=== PATIENT | female | born 1965 | race African-American/Black ===

== ENCOUNTER 2021-05-02 22:53 | Emergency (ER) | payer SELFPAY ==
[~2021-05-02] VITALS: Ht 165.1 cm; Wt 52.2 kg
[2021-05-02 23:04] VITALS: BP 140/97
--- NOTE | 2021-05-02 23:37 | NUR ---
PAN DEVULCANIZER AT PT'S BEDSIDE
--- NOTE | 2021-05-03 01:17 | NUR ---
Patient eloped from facility. ER MD notified.
== END 2021-05-03 01:18 | disposition home or self-care (01) ==
LOC: ER 22:56
DX: M25.512 Pain in left shoulder (principal); R07.81 Pleurodynia; Z60.2 Problems related to living alone; W05.1XXA Fall from non-moving nonmotorized scooter, initial encounter; Y93.55 Activity, bike riding; Y92.512 Supermarket, store or market as the place of occurrence of the external cause; Y99.8 Other external cause status
CPT/HCPCS: 71100-TC; 73030-TC

== ENCOUNTER 2021-08-14 15:12 | Emergency (ER) | payer MEDICARE, OTHER ==
[~2021-08-14] VITALS: Ht 165.1 cm; Wt 57.6 kg
--- NOTE | 2021-08-14 15:15 | NUR ---
BIB88 HOME AFTER DAUGHTER CALLED C/O FEELING SICK. PER EMS VOMITED X 1 YESTERDAY. PT STATED THAT SHE HAS BACK PAIN SINCE AN ACCIDENT SHE HAS PRIOR TO . PT ATTACHED TO MONITOR. DR SULLIVAN AT BEDSIDE
--- NOTE | 2021-08-14 15:26 | NUR ---
IV ETSBALISHED R FOREARM 20G. LABS DRAWN AND COLLECTED. CONVERTED TO SALINE LOCK.
[2021-08-14] MEDS ORDERED: ONDANSETRON HCL/PF 4 MG/2 ML VIAL IVP ONE (15:30)
[2021-08-14] MEDS ORDERED: IV NS 0.9% 1,000 ML BAG IV ONE (15:30)
--- NOTE | 2021-08-14 15:33 | NUR ---
PT TAKEN TO CT VIA YUE
[2021-08-14] MEDS ORDERED: ONDANSETRON HCL/PF 4 MG/2 ML VIAL ONE (15:42)
--- NOTE | 2021-08-14 15:51 | NUR ---
BUTT SAWYER AT BEDSIDE
[2021-08-14 16:04] LABS: BASOPHILS # (AUTO) 0.1 K/uL (0.0-0.2); BASOPHILS % (AUTO) 0.9 % (0.0-2.0); EOSINOPHILS % (AUTO) 1.3 % (0.0-6.0); HEMATOCRIT 37 % (33-45); HEMOGLOBIN 12.1 g/dL (11.5-14.8); LYMPHOCYTES # (AUTO) 1.8 K/uL (0.8-4.8); LYMPHOCYTES % (AUTO) 23.8 % (20.0-44.0); MEAN CORPUSCULAR HGB CONC 33 g/dl (31.0-36.0); MEAN CORPUSCULAR VOLUME 86 fL (82-100); MONOCYTES # (AUTO) 0.5 K/uL (0.1-1.30); MONOCYTES % (AUTO) 6.6 % (2.0-12.0); NEUTROPHILS % (AUTO) 67.4 % (43.0-81.0); PLATELET COUNT (AUTO) 397 K/uL (150-450); WHITE BLOOD COUNT (AUTO) 7.4 K/uL (4.3-11.0)
--- NOTE | 2021-08-14 16:06 | NUR ---
URINE SAMPLE COLLECTED VIA STRAIGHT CATHETER. SENT SAMPLE TO LAB
[2021-08-14 16:16] LABS: SERUM AMMONIA 26 umol/L (11-32)
[2021-08-14 16:42] LABS: BILIRUBIN,URINE SMALL (NEGATIVE); COLOR,URINE YELLOW (YELLOW); LEUKOCYTE ESTERASE ,URINE TRACE (NEGATIVE); NITRITE, URINE POSITIVE (NEGATIVE); PROTEIN,URINE 30 mg/dl (NEGATIVE); UGLUCOSE NEGATIVE (NEGATIVE)
[2021-08-14 16:42] LABS: THYROID STIMULATING HORMONE 0.554 uIU/mL (0.358-3.74)
[2021-08-14 16:56] LABS: ACETAMINOPHEN 0 ug/ml (10-30); ALANINE AMINOTRANSFERASE 21 U/L (12-78); ALBUMIN 3.9 g/dL (3.4-5.0); ALCOHOL, BLOOD < 3 mg/dL (0-0); ALKALINE PHOSPHATASE 87 U/L (46-116); ASPARTATE AMINOTRANSFERASE 18 U/L (15-37); BILIRUBIN,DIRECT 0.1 mg/dL (0.0-0.2); BILIRUBIN,TOTAL 0.5 mg/dL (0.2-1.0); CALCIUM, SERUM 8.8 mg/dL (8.5-10.1); CARBON DIOXIDE 28 mmol/L (21-32); CHLORIDE 99 mmol/L (98-107); CREATININE 0.9 mg/dL (0.6-1.3); GLUCOSE 114 mg/dL (74-106); POTASSIUM 4.1 mmol/L (3.5-5.1); SODIUM SERUM 134 mmol/L (136-145); TOTAL PROTEIN, SERUM 8.1 g/dL (6.4-8.2); UREA NITROGEN, BLOOD 12 mg/dL (7-18)
[2021-08-14] MEDS ORDERED: ONDA4TAB11 PO (17:10)
[2021-08-14] MEDS ORDERED: NITR100C6 PO (17:10)
[2021-08-14 17:20] LABS: BACTERIA,URINE 4+ /HPF (None Seen); RBC,URINE 0-2 /HPF (0-2); SQUAMOUS EPITHELIAL CELL,UR 0-2 /HPF (None Seen)
--- NOTE | 2021-08-14 17:30 | NUR ---
SPOKE TO BEVERLEY (DAUGHTER) [phone]. 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 WILL CALL COUSIN AND WILL CALL US BACK.
--- NOTE | 2021-08-14 17:52 | NUR ---
[employer] [facility] AND SET UP S TRANSPORT HOME ETA 1899
--- NOTE | 2021-08-14 18:06 | NUR ---
DAUGHTER MADE AWARE THAT PATIENT WILL BE PICKED UP AND TRANSPORTED TO HER HOUSE BY BLS
--- NOTE | 2021-08-14 19:06 | NUR ---
PATIENT PICKED UP BY [facility] [id number] IN STABLE CONDITION. PATIENT WILL BE BROUGHT TO HER HOUSE IN [place].
[2021-08-14 19:08] VITALS: BP 132/86
== END 2021-08-14 19:20 | disposition home or self-care (01) ==
LOC: ER 15:14
DX: R11.2 Nausea with vomiting, unspecified (principal); N39.0 Urinary tract infection, site not specified; N20.0 Calculus of kidney; I10 Essential (primary) hypertension; Z60.2 Problems related to living alone; Z79.899 Other long term (current) drug therapy
CPT/HCPCS: 36415; 70450; 71045; 72125; 74176; 80048; 80076; 80143; 80307; 80320; 81001; 82140; 84443; 84484; 85025; 85730; 87077; 87086; 87186; 93005; 96361; 96374; 99285; J2405; J7030; G0480